=== PATIENT | female | born 1995 | race American Indian/Alaskan Native ===

== ENCOUNTER 2018-10-25 17:55 | Emergency (ER) | payer MEDICAID, OTHER ==
--- NOTE | 2018-10-25 18:20 | Emergency Department Report ---
Blank Doc - Documentation Documentation: 23 y o female presents to ed cc of left and middle sided pelvic pain x t gilbert intermittent every 5 mins LMP july 2018 no ob care yet LAbs ordered
[2018-10-25] MEDS ORDERED: NACL 0.9% 1000 ML 1,000 ML IV ONE (18:23)
[2018-10-25 18:40] LABS: Basophils % (Auto) 0.7 % (0.0-1.8); Eosinophils % (Auto) 0.7 % (0.0-4.3); Hematocrit 38.2 % (30.3-42.9); Hemoglobin 12.8 gm/dl (10.1-14.3); Lymphocytes # (Auto) 2.1 K/mm3 (1.2-5.4); Mean Corpuscular HGB Conc 34 % (30-34); Mean Corpuscular Volume 89 fl (79-97); Monocytes # (Auto) 0.5 K/mm3 (0.0-0.8); Monocytes % (Auto) 7.1 % (0.0-7.3); Platelet Count 283 K/mm3 (140-440); Red Blood Count 4.32 M/mm3 (3.65-5.03); Red Cell Distribution Width 14.1 % (13.2-15.2)
[2018-10-25] MEDS ORDERED: NACL 0.9% 500 ML 500 ML IV ONE (18:52)
[2018-10-25] MEDS ORDERED: ZOFRAN IV ONE (18:52)
[2018-10-25] MEDS ORDERED: MORPHINE IV ONE (18:52)
--- NOTE | 2018-10-25 18:53 | Emergency Department Report ---
ED Female HPI - General Chief complaint: Vaginal Bleeding Stated complaint: ABD PAIN Time Seen by Provider: 10/25/18 18:16 Source: patient, RN notes reviewed Mode of arrival: Ambulatory Limitations: No Limitations - History of Present Illness Initial comments: This is a 23-year-old female. The patient is not known to this provider previously. She reports that she is 1, para 0. Does not have a local primary care doctor. Does not have a local LAND ACQUISITION MANAGER physician. Recently moved here from [place], [place]. Patient presents to the emergency room with a complaint of nontraumatic suprapubic pain, and vaginal spotting. She used 2 pads today. The vaginal spotting started 3-4 days ago. She defecated normally today, reports no vomiti ng, reports no irritative or obstructive urinary symptoms. Denies headache, neck pain, chest pain, shortness of breath. Reports no recent heavy lifting or trauma. Reports no recent vigorous sexual intercourse. No history of abdominal surgeries. MD Complaint: vaginal bleeding, pelvic pain -: Gradual, days(s) Location: suprapubic Severity: mild, moderate Quality: cramping Consistency: intermittent Improves with: other (pain decreases with rest. It increases with palpation. Pain decreases with lying on her left hand side.) Are you Now?: Yes Associated Symptoms: vaginal bleeding, abdominal pain. denies: vaginal discharge, fever/chills - Related Data Sexually active: Yes Previous Rx's Medication Instructions Recorded Last Taken Type Acetaminophen [Non-Aspirin Extra 500 mg PO Q6HR PRN #30 tablet 10/25/18 Unknown Rx Strength] Ibuprofen [Motrin] 600 mg PO Q8H PRN #30 tablet 10/25/18 Unknown Rx Allergies Allergy/AdvReac Type Severity Reaction Status Date / Time Penicillins Allergy Unknown Verified 10/25/18 18:16 ED Review of Systems ROS: Stated complaint: ABD PAIN Other details as noted in HPI Constitutional: malaise. denies: fever Eyes: denies: eye discharge ENT: denies: epistaxis Respiratory: denies: cough Cardiovascular: denies: chest pain Gastrointestinal: abdominal pain Genitourinary: denies: dysuria Musculoskeletal: denies: back pain Skin: denies: lesions Neurological: weakness Psychiatric: anxiety ED Past Medical Hx - Past Medical History Previous Medical History?: No - Surgical History Past Surgical History?: No - Social History Smoking Status: Never Smoker Substance Use Type: None - Medications Home Medications: Home Medications Medication Instructions Recorded Confirmed Last Taken Type Acetaminophen [Non-Aspirin Extra 500 mg PO Q6HR PRN #30 tablet 10/25/18 Unknown Rx Strength] Ibuprofen [Motrin] 600 mg PO Q8H PRN #30 tablet 10/25/18 Unknown Rx ED Physical Exam - General Limitations: No Limitations General appearance: alert, anxious, in distress - Head Head exam: Present: atraumatic, normocephalic - Eye Eye exam: Present: EOMI. Absent: nystagmus - ENT ENT exam: Present: normal exam, normal orophraynx, mucous membranes moist, normal external ear exam - Neck Neck exam: Present: normal inspection, full ROM. Absent: tenderness, meningismus - Respiratory Respiratory exam: Present: normal lung sounds bilaterally. Absent: respiratory distress - Cardiovascular Cardiovascular Exam: Present: regular rate, normal rhythm, normal heart sounds. Absent: bradycardia, tachycardia, irregular rhythm, systolic murmur, diastolic murmur, rubs, gallop - GI/Abdominal GI/Abdominal exam: Present: soft, tenderness, other (there is left lower quadrant and suprapubic tenderness. There is no right lower quadrant tenderness. There is no problems extend. There is a negative Telles sign.). Absent: distended, guarding, rebound, rigid, pulsatile mass - External exam: Present: normal external exam Speculum exam: Present: vaginal bleeding. Absent: erythema, vaginal discharge Bi-manual exam: Present: uterine tenderness, other (chaperoned by nikolas Bui). Absent: adnexal tenderness, adnexal mass - Extremities Exam Extremities exam: Present: normal inspection, full ROM, other (2+ pulses noted in the bilateral upper, lower extremities. Compartments soft. No long bony tenderness. The pelvis is stable.). Absent: pedal edema, joint swelling, calf tenderness - Back Exam Back exam: Present: normal inspection, full ROM, CVA tenderness (L). Absent: tenderness, CVA tenderness (R), paraspinal tenderness, vertebral tenderness - Neurological Exam Neurological exam: Present: alert, other (Extraocular movements intact. Tongue midline. No facial droop. Facial sensation intact to light touch in the V1, V2, V3 distribution bilaterally. 5 and 5 strength in 4 extremities.. Sensation is intact to light touch in 4 extremities.). Absent: motor sensory deficit - Psychiatric Psychiatric exam: Present: anxious - Skin Skin exam: Present: warm, dry, intact, normal color. Absent: rash ED Course Vital Signs 10/25/18 10/25/18 10/25/18 18:16 18:43 19:24 Temperature 97.9 F 98.4 F Pulse Rate 110 H 82 Respiratory 22 18 18 Rate Blood Pressure 146/77 93/50 [Right] O2 Sat by Pulse 100 98 Oximetry - Reevaluation(s) Reevaluation #1: 10/25/18 19:31 Differential diagnosis, including but not limited to: Urinary tract infection, miscarriage, threatened miscarriage, ovarian cyst, ovarian torsion, ectopic Assessment and plan: 23-year-old female with vaginal bleeding and lower abdominal pain. Minimally tender. Afebrile, with otherwise reassuring vital signs, with resolved tachycardia. Screening laboratory studies, urinalysis, pelvic ultrasound pending. We will reassess after her initial data points. Of note, she reports not having had penicillin since the age of 7, and reports that her "allergy" is a rash without anaphylaxis. Reevaluation #2: 10/25/18 23:00 Patient reevaluated multiple times while in the department. She feels comfortable. She is noted to be smiling to her manager of engineering. Unfortunately, ultrasound demonstrates twin demise, with no evidence of subchorionic hemorrhage, no evidence of ovarian torsion, and closed internal uterine os The patient will be instructed to follow-up with an outpatient LAND ACQUISITION MANAGER doctor. Return precautions are reviewed. ED Medical Decision Making - Lab Data Result diagrams: 10/25/18 18:25 10/25/18 18:25 Vital Signs 10/25/18 10/25/18 10/25/18 18:16 18:43 19:24 Temperature 97.9 F 98.4 F Pulse Rate 110 H 82 Respiratory 22 18 18 Rate Blood Pressure 146/77 93/50 [Right] O2 Sat by Pulse 100 98 Oximetry Lab Results 10/25/18 10/25/18 10/25/18 Range/Units 18:25 18:25 18:25 WBC 6.4 (4.5-11.0) K/mm3 RBC 4.32 (3.65-5.03) M/mm3 Hgb 12.8 (10.1-14.3) gm/dl Hct 38.2 (30.3-42.9) % MCV 89 (79-97) fl MCH 30 (28-32) pg MCHC 34 (30-34) % RDW 14.1 (13.2-15.2) % Plt Count 283 (140-440) K/mm3 Lymph % (Auto) 33.0 (13.4-35.0) % [place] % (Auto) 7.1 (0.0-7.3) % Eos % (Auto) 0.7 (0.0-4.3) % Baso % (Auto) 0.7 (0.0-1.8) % Lymph # 2.1 (1.2-5.4) K/mm3 [place] # 0.5 (0.0-0.8) K/mm3 Eos # 0.0 (0.0-0.4) K/mm3 Baso # 0.0 (0.0-0.1) K/mm3 Seg Neutrophils % 58.5 (40.0-70.0) % Seg Neutrophils # 3.8 (1.8-7.7) K/mm3 HCG, Quant 3896 H (0-4) mIU/mL Blood Type O POSITIVE - Radiology Data Radiology results: report reviewed, image reviewed Print Report Referring Physician: JUDITH ERICKSON Patient Name: GIESLE VALERA Date of : 1995 Sex: Female Report Date: 2018-10-25 Report Status: Finalized Findings [facility] [address] [place] [address] Ultrasound Report Signed Patient: GISELE VALERA MR#: [id number] : 1995 Acct:[id number] Age/Sex: 23 / F ADM Date: 10/25/18 Loc: ED Attending Dr: Ordering Physician: JUDITH ERICKSON MD Date of Service: 10/25/18 Procedure(s): US pelvis duplex doppler comp Accession Number(s): [id number] cc: JUDITH ERICKSON MD PROCEDURE: US OB <= 14 WEEKS FETUS TECHNIQUE: Real-time sonography was performed of the pelvis transabdominally and endovaginally and images are submitted for interpretation. HISTORY: pain/bleed quantitative beta hCG is 3896 COMPARISONS: None FINDINGS: The cervix is closed. There is a large misshapen gestational sac in the uterus with a thin linear septation, probably an amnionic membrane. There is a pole that measures 0.95 cm for an estimated gestational age of 7 weeks 0 days. There is another that measures 0.58 cm in for an estimated gestational age of 6 weeks 3 days. There is no cardiac activity in either pole. There is no evidence of subchorionic hematoma. The right ovary appears normal measuring 2.9 x 1.2 x 3.2 cm. The left ovary appears normal measuring 2.7 x 1.8 x 1.8 cm. Color Doppler evaluation of the ovaries shows flow bilaterally. IMPRESSION: Twin gestation with demise of both twins. I gave verbal report by phone to Dr. Erickson at 10:54 pm Eastern daylight time. This document is electronically signed by Telma Whitmore MD., Oct 25 2018 11:00:44 PM ET Transcribed By: [facility] Dictated By: TELMA WHITMORE MD Electronically Authenticated By: TELMA WHITMORE MD Signed Date/Time: 10/25/18 1013 Critical care attestation.: If time is entered above; I have spent that time in minutes in the direct care of this critically ill patient, excluding procedure time. ED Disposition Clinical Impression: Miscarriage Disposition: DC-01 TO HOME OR SELFCARE Is pt being admited?: No Does the pt Need Aspirin: No Condition: Stable Instructions: Spontaneous Miscarriage (ED) Additional Instructions: Cultures were sent today, and results will be available in the next 3-5 days. Have a primary care doctor or grinder set up operator jig contact the medical records department to obtain culture results. Ultrasound demonstrated demise and miscarriage. Patient will likely continue to have cramping, bleeding and discomfort. Take the pain medications as needed/directed. Rest, avoid heavy lifting, and avoid strenuous physical activities. Please follow up with an LAND ACQUISITION MANAGER doctor as soon as possible to continue outpatient care. Return to the emergency room right away with new pain, worsening pain, migration of pain, projectile vomiting, change in mental status, confusion, inability to tolerate liquid feeds, new, worsening or different symptoms not present on the initial ER evaluation. Prescriptions: Ibuprofen [Motrin] 600 mg PO Q8H PRN #30 tablet PRN Reason: Pain Acetaminophen [Non-Aspirin Extra Strength] 500 mg PO Q6HR PRN #30 tablet PRN Reason: Pain , Severe (7-10) Referrals: [facility] [Provider Group] - 3-5 Days [facility], [facility] [Provider Group] - 3-5 Days [facility] [Provider Group] - 3-5 Days
[2018-10-25 19:38] LABS: Alanine Aminotransferase 11 units/L (7-56); Albumin 4.2 g/dL (3.9-5); BUN/Creatinine Ratio 5; Blood Urea Nitrogen 3 mg/dL (7-17); Calcium 9.8 mg/dL (8.4-10.2); Hemolysis Index 2
[2018-10-25 19:43] LABS: Bilirubin,Urine NEG (Negative); Blood,Urine MOD (Negative); Color,Urine Yellow (Yellow); Mucus,Urine FEW /HPF; Protein,Urine <15 mg/dL mg/dL (Negative); Urobilinogen,Urine < 2.0 mg/dL (<2.0)
--- NOTE | 2018-10-25 22:59 | Ultrasound Report ---
PROCEDURE: US OB <= 14 WEEKS FETUS TECHNIQUE: Real-time sonography was performed of the pelvis transabdominally and endovaginally and i mages are submitted for interpretation. HISTORY: pain/bleed quantitative beta hCG is 3896 COMPARISONS: None FINDINGS: The cervix is closed. There is a large misshapen gestational sac in the uterus with a thin linear sep tation, probably an amnionic membrane. There is a pole that measures 0.95 cm for an estimated g estational age of 7 weeks 0 days. There is a second pole that measures 0.58 cm in for an estima sixto gestational age of 6 weeks 3 days. There is no cardiac activity in either pole. There is no evidence of subchorionic hematoma. The right ovary appears normal measuring 2.9 x 1.2 x 3.2 cm. The left ovary appears normal measuring 2.7 x 1.8 x 1.8 cm. Color Doppler evaluation of the ovaries shows flow bilaterally. IMPRESSION: Twin gestation with demise of both twins. I gave verbal report by phone to Dr. Erickson at 10:54 PM Eastern daylight time. This document is electronically signed by Marah Whitmore MD., Oct 25 2018 11:50:58 PM ET
--- NOTE | 2018-10-25 23:02 | Ultrasound Report ---
PROCEDURE: US OB <= 14 WEEKS FETUS TECHNIQUE: Real-time sonography was performed of the pelvis transabdominally and endovaginally and i mages are submitted for interpretation. HISTORY: pain/bleed quantitative beta hCG is 3896 COMPARISONS: None FINDINGS: The cervix is closed. There is a large misshapen gestational sac in the uterus with a thin linear sep tation, probably an amnionic membrane. There is a pole that measures 0.95 cm for an estimated g estational age of 7 weeks 0 days. There is another that measures 0.58 cm in for an estimated gestatio nal age of 6 weeks 3 days. There is no cardiac activity in either pole. There is no evidence of subchorionic hematoma. The right ovary appears normal measuring 2.9 x 1.2 x 3.2 cm. The left ovary appears normal measuring 2.7 x 1.8 x 1.8 cm. Color Doppler evaluation of the ovaries shows flow bilaterally. IMPRESSION: Twin gestation with demise of both twins. I gave verbal report by phone to Dr. Erickson at 10:54 pm Eastern daylight time. This document is electronically signed by Marah Whitmore MD., Oct 25 2018 11:00:44 PM ET
[2018-10-25] MEDS ORDERED: SUBLIMAZE IV ONE (23:10)
[2018-10-26 06:19] VITALS: BP 121/72
--- NOTE | 2018-11-03 15:58 | Anesthesia Day of Surgery ---
Anesthesia Day of Surgery - Day of Surgery Patient Examined: Yes Patient H&P Reviewed: Yes Patient is NPO: Yes (@ 9am ) Beta Blockers: No Cardiac Clearance: No Pulmonary Clearance: No Blanco's Test: N/A
--- NOTE | 2018-11-03 15:59 | Anesthesia Consultation ---
Anesthesia Consult and Med Hx Date of service: 11/03/18 - Airway Anesthetic Teeth Evaluation: Good ROM Head & Neck: Adequate Mental/Hyoid Distance: Adequate Mallampati Class: Class II Intubation Access Assessment: Probably Good - Pulmonary Exam CTA: Yes - Pre-Operative Health Status ASA Pre-Surgery Classification: ASA1 Proposed Anesthetic Plan: General - Pulmonary Hx Smoking: No Hx Asthma: No Hx Respiratory Symptoms: No SOB: No COPD: No Hx Sleep Apnea: No - Cardiovascular System Hx Hypertension: No - Gastrointestinal Hx Ulcer: No Hx Gastroesophageal Reflux Disease: No - Hematic Hx Anemia: No - Additional Comments Anesthesia Medical History Comments: uneventful history
== END 2018-10-25 23:00 | disposition home or self-care (01) ==
LOC: ED 17:55
DX: O03.9 Complete or unspecified spontaneous abortion without complication (principal); Z88.0 Allergy status to penicillin; Z3A.01 Less than 8 weeks gestation of pregnancy
CPT/HCPCS: 36415; 76801; 76817; 80053; 81001; 84702; 85025; 86850; 86900; 86901; 87210; 87591; 93975; 96374; 96375; 99285; J2270; J2405; J3010; J7030

== ENCOUNTER 2018-11-03 10:16 | Day surgery (SDC) | payer MEDICAID, OTHER ==
--- NOTE | 2018-11-03 10:58 | Emergency Department Report ---
HPI - General Chief Complaint: Vaginal Bleeding Time Seen by Provider: 11/03/18 10:42 - HPI HPI: Room 24 The patient is a 23-year-old female presented with a chief complaint of vaginal bleeding. The patient was seen in this ED last week and diagnosed with demise. The patient states since the last visit she is continued to have vaginal bleeding going through approximately 6 pads per day. Patient states she is bleeding and passing blood clots. The patient states she had some lower abdominal pain 3 days ago but none currently. The patient states she has not followed up with an DONOR SERVICES TEAM LEADER since her last ED visit. Location: Genitourinary system Duration: 1 Week Quality: [See above] Severity: 6 pads per day Modifying factors: [see above] Context: [see above] Mode of transportation: [not driving] ED Past Medical Hx - Past Medical History Previous Medical History?: No - Surgical History Past Surgical History?: No - Family History Family history: no significant - Social History Smoking Status: Never Smoker Substance Use Type: None (denies illicit drug use) - Medications Home Medications: Home Medications Medication Instructions Recorded Confirmed Last Taken Type Acetaminophen [Non-Aspirin Extra 500 mg PO Q6HR PRN #30 tablet 10/25/18 Unknown Rx Strength] Ibuprofen [Motrin] 600 mg PO Q8H PRN #30 tablet 10/25/18 Unknown Rx ED Review of Systems ROS: Stated complaint: VAGINAL BLOOD CLOT/PAIN Other details as noted in HPI Constitutional: no symptoms reported Eyes: denies: eye pain ENT: denies: throat pain Respiratory: no symptoms reported Cardiovascular: denies: chest pain Endocrine: no symptoms reported Gastrointestinal: abdominal pain Genitourinary: abnormal menses Musculoskeletal: denies: back pain Neurological: denies: headache Physical Exam - Physical Exam Vital Signs: Vital Signs 11/03/18 10:26 Temperature 98.7 F Pulse Rate 95 H Respiratory 18 Rate Blood Pressure 118/72 O2 Sat by Pulse 98 Oximetry Physical Exam: GENERAL: The patient is well-developed well-nourished female lying on stretcher not appearing to be in acute distress. [] HEENT: Normocephalic. Atraumatic. Extraocular motions are intact. NECK: Trachea midline CHEST/LUNGS: Clear to auscultation. There is no respiratory distress noted. HEART/CARDIOVASCULAR: Regular. There is no tachycardia. There is no gallop rub or murmur. ABDOMEN: Abdomen is soft, nontender. Patient has normal bowel sounds. There is no abdominal distention. SKIN: There is no rash. There is no edema. There is no diaphoresis. NEURO: The patient is awake, alert, and oriented. The patient is cooperative. The patient has normal speech MUSCULOSKELETAL: There is no evidence of acute injury. PELVIC: Small to moderate amount of dark red blood in the vaginal vault ED Course Vital Signs 11/03/18 10:26 Temperature 98.7 F Pulse Rate 95 H Respiratory 18 Rate Blood Pressure 118/72 O2 Sat by Pulse 98 Oximetry - Consultations Consultation #1: 11/03/18 13:12 DONOR SERVICES TEAM LEADER paged 11/03/18 13:[address] Maya 11/03/18 14:44 Dr. Maya state the patient will be going to the OR for a D&C ED Medical Decision Making - Lab Data Result diagrams: 11/03/18 10:56 Laboratory Tests 11/03/18 11/03/18 11/03/18 10:56 10:56 13:15 WBC 6.4 RBC 3.95 Hgb 11.6 Hct 35.4 MCV 90 MCH 29 MCHC 33 RDW 14.6 Plt Count 245 Lymph % (Auto) 22.5 Lane % (Auto) 8.3 H Eos % (Auto) 0.3 Baso % (Auto) 0.2 Lymph # 1.4 Lane # 0.5 Eos # 0.0 Baso # 0.0 Seg Neutrophils % 68.7 Seg Neutrophils # 4.4 HCG, Quant 258.5 H Urine Color Yellow Urine Turbidity Slightly-cloudy Urine pH 7.0 Ur Specific [place] 1.013 Urine Protein <15 mg/dl Urine Glucose (UA) Neg Urine Ketones Neg Urine Blood Lg Urine Nitrite Neg Urine Bilirubin Neg Urine Urobilinogen < 2.0 Ur Leukocyte Esterase Mod Urine WBC (Auto) 43.0 H Urine RBC (Auto) 173.0 U Epithel Cells (Auto) 1.0 Urine Mucus Few - Radiology Data Radiology results: report reviewed (pelvic ultrasound), image reviewed (pelvic ultrasound) [facility] [address] [place] [address] Ultrasound Report Signed Patient: GISELE VALERA MR#: [id number] : 1995 Acct:[id number] Age/Sex: 23 / F ADM Date: 11/03/18 Loc: ED Attending Dr: Ordering Physician: KAMI SANDOVAL MD Date of Service: 11/03/18 Procedure(s): US OB transvaginal Accession Number(s): [id number] cc: KAMI SANDOVAL MD ULTRASOUND OB LESS THAN 14 WEEKS FETUS ULTRASOUND OB TRANSVAGINAL History: Vaginal bleeding, demise. Findings: Transabdominal and transvaginal imaging was performed. Compared to 10/25/18. The uterus is retroflexed measuring 9 x 5 x 4 cm. The endometrial stripe is thickened and complex measuring up to 1.8 cm. No normal intrauterine or heart tones are demonstrated. The ovaries are unremarkable. No pelvic fluid collection. Impression: Findings consistent with demise and retained products of conception. Transcribed By: TTR Dictated By: PÉREZ FERNANDO JR, MD Electronically Authenticated By: PÉREZ FERNANDO JR, MD Signed Date/Time: 11/03/18 1250 DD/ 1248 TD/TT: 11/03/18 1250 - Differential Diagnosis demise Critical care attestation.: If time is entered above; I have spent that time in minutes in the direct care of this critically ill patient, excluding procedure time. ED Disposition Clinical Impression: demise, Retained products of conception Disposition: OP ADMIT IP TO THIS HOSP Is pt being admited?: Yes Does the pt Need Aspirin: No Condition: Stable Referrals: AMARA CANNON MD [Primary Care Provider] - 3-5 Days Time of Disposition: 14:43
[2018-11-03 11:39] LABS: Basophils % (Auto) 0.2 % (0.0-1.8); Eosinophils % (Auto) 0.3 % (0.0-4.3); Hematocrit 35.4 % (30.3-42.9); Hemoglobin 11.6 gm/dl (10.1-14.3); Lymphocytes # (Auto) 1.4 K/mm3 (1.2-5.4); Lymphocytes % (Auto) 22.5 % (13.4-35.0); Mean Corpuscular HGB Conc 33 % (30-34); Mean Corpuscular Volume 90 fl (79-97); Monocytes # (Auto) 0.5 K/mm3 (0.0-0.8); Monocytes % (Auto) 8.3 % (0.0-7.3); Platelet Count 245 K/mm3 (140-440); Red Blood Count 3.95 M/mm3 (3.65-5.03); Red Cell Distribution Width 14.6 % (13.2-15.2)
--- NOTE | 2018-11-03 12:54 | Ultrasound Report ---
ULTRASOUND OB LESS THAN 14 WEEKS FETUS ULTRASOUND OB TRANSVAGINAL History: Vaginal bleeding, demise. Findings: Transabdominal and transvaginal imaging was performed. Compared to 10/25/18. The uterus is retroflexed measuring 9 x 5 x 4 cm. The endometrial stripe is thickened and complex measuring up to 1.8 cm. No normal intrauterine or heart tones are demonstrated. The ovaries are unremarkable. No pelvic fluid collection. Impression: Findings consistent with demise and retained products of conception.
[2018-11-03 13:32] LABS: Bilirubin,Urine NEG (Negative); Blood,Urine LG (Negative); Color,Urine Yellow (Yellow); Mucus,Urine FEW /HPF; Protein,Urine <15 mg/dL mg/dL (Negative); Urobilinogen,Urine < 2.0 mg/dL (<2.0)
--- NOTE | 2018-11-03 15:14 | History and Physical Report ---
History of Present Illness Date of examination: 11/03/18 Date of admission: 11/03/18 Chief complaint: at 7 weeks with vaginal bleeding. History of present illness: Patient is a 23 year old , LMP 07/27/18 who presented to the ER complaining of having vaginal bleeding since 10/25/18. She said that she went to the ER on 10/25/18 and that when she was told that she as with twins at 7 weeks and sonogram showed no heart beat. She was discharged home and asked to follow up with her route sales specialist. She said that she did not and she continued to bleed with clots. She denies any dizziness, palpitation. In the ER, vitals are stable. Sonogram in ER showed retained products of conception in utero. Past History Social history: no significant social history Medications and Allergies Allergies Allergy/AdvReac Type Severity Reaction Status Date / Time Penicillins Allergy Unknown Verified 11/03/18 10:17 Home Medications Medication Instructions Recorded Confirmed Last Taken Type Acetaminophen [Non-Aspirin Extra 500 mg PO Q6HR PRN #30 tablet 10/25/18 Unknown Rx Strength] Ibuprofen [Motrin] 600 mg PO Q8H PRN #30 tablet 10/25/18 Unknown Rx - Vital Signs Vital signs: Vital Signs Temp Pulse Resp BP Pulse Ox 98.7 F 95 H 18 118/72 98 11/03/18 10:26 11/03/18 10:26 11/03/18 10:11/03/18 10:11/03/18 10:26 Temp Pulse Resp BP Pulse Ox 98.7 F 76 18 104/70 100 11/03/18 10:26 11/03/18 11:30 11/03/18 13:17 11/03/18 11:30 11/03/18 11:15 - Physical Exam Cardiovascular: Normal S1, Normal S2 Lungs: Positive: Clear to auscultation Vulva: both: normal Cervix: Positive: other (opened with POc at the os. Active bleeding.) Uterus: Positive: other (12 week size, anterveretd, mobile.) Adnexa: both: normal Results Result Diagrams: 11/03/18 10:56 Abnormal lab results 11/03/18 11/03/18 11/03/18 Range/Units 10:56 10:56 13:15 [place] % (Auto) 8.3 H (0.0-7.3) % HCG, Quant 258.5 H (0-4) mIU/mL Urine WBC (Auto) 43.0 H (0.0-6.0) /HPF All other labs normal. Assessment and Plan - Patient Problems (1) 7 weeks gestation of Current Visit: Yes Status: Acute (2) Incomplete Current Visit: Yes Status: Acute Plan to address problem: Admit to station cook service. T&S ordered. Patient was counselled for suction D&C. Risks and benefits were discussed with her such as [id number], infection, uterine perforation. She expressed understanding, her questions were answered, she gave her informed consent. Anestehsia notified. Keep NPO.
[2018-11-03] MEDS ORDERED: DIPRIVAN 10 MG/ML IV ONE (15:57)
[2018-11-03] MEDS ORDERED: XYLOCAINE MPF 2% ONE (15:57)
[2018-11-03] MEDS ORDERED: ZEMURON IV ONE (15:58)
[2018-11-03] MEDS ORDERED: QUELICIN ONE (15:58)
[2018-11-03] MEDS ORDERED: SUBLIMAZE ONE ×2 (15:58→16:57)
[2018-11-03] MEDS ORDERED: VERSED ONE (16:35)
[2018-11-03] MEDS ORDERED: CLEOCIN 900 MG/50 mL 900 MG/50 ML BAG IV ONE (16:57)
[2018-11-03] MEDS ORDERED: METHERGINE IM ONE (16:58)
[2018-11-03] MEDS ORDERED: BRIDION IV ONE ×2 (17:00→17:10)
[2018-11-03] MEDS ORDERED: NACL 0.9% IR ONE (17:05)
--- NOTE | 2018-11-03 17:14 | Operative Report ---
Operative Report Operative Report: Preoperative diagnosis: Incomplete . Postoperative diagnosis: same as preoperative diagnosis. Procedure: Suction D&C Surgeon: Dr. [facility] Specialist: none Anesthesia: General. EBL: 100 cc IVF: RL 1 liter Complications: none Procedure details: The risks, benefits, and alternatives of the procedure were discussed in detail with the patient which included but not limited to infection, hemorrhage requiring a, and uterine perforation. The patient expressed understanding, her questions answered, and she gave informed consent. The patient was taken to the operating room with an IVF infusing Ringer's lactate. In the operating room, she was placed in the dorsal supine position and given general anesthesia. Then, she was placed on the stirrups in a dorsal lithotomy position. The perineum vagina and cervix were washed and she was prepared and draped in the usual sterile fashion. Examination under anesthesia revealed normal external genitalia and vagina. The cervix was opened with POC at the os and moderate bleeding. The uterus was enlarged to 12-wk size, anteverted, mobile. The adnexae were nonpalpable. A weighted speculum was placed on the posterior vaginal wall. The anterior lip of the cervix was grasped with a single-tooth tenaculum. The cervical os was dilated, a 10-mm suction curette was connected to the suction device and introduced into the uterine cavity. It was rotated and moderate amount of tissues was suctioned. A gentle curettage was performed until a gritty texture was noticed. The suction device was re- introduced into the uterine cavity and was rotated to remove the remaining products of conception. The instruments were then removed from the uterine cavi ty. The count of laps, needles, sponges, and instrument were correct 2. The patient tolerated the procedure well. She was awakened from the anesthesia and taken to the recovery room in a stable condition.
[2018-11-03] MEDS ORDERED: NACL 0.9% 1000 ML 1,000 ML ONE (17:52)
[2018-11-03 18:04] VITALS: BP 106/76
== END 2018-11-03 19:30 | disposition home or self-care (01) ==
LOC: OR 10:16 → ED 10:16 → EDSTATUS 16:43 → OR 19:30
PROVIDERS: ATTEND Emergency Medicine Emergency Medical Services
DX: O03.4 Incomplete spontaneous abortion without complication (principal); Z88.0 Allergy status to penicillin; Z79.899 Other long term (current) drug therapy
CPT/HCPCS: 36415; 59812; 76801; 76817; 81001; 84702; 85025; 86900; 86901; 87086; 88305; 99285; J0330; J2210; J2250; J2590; J2704; J3010; J7030

== ENCOUNTER 2018-11-17 11:38 | Emergency (ER) | payer MEDICAID, OTHER ==
[2018-11-17 11:57] VITALS: BP 126/78
--- NOTE | 2018-11-17 11:59 | Emergency Department Report ---
Chief Complaint: Recheck/Abnormal Lab/Rx Stated Complaint: CHECK UP - HPI History of Present Illness: This is a 23-year-old female that presents to the ED for follow-up D/C procedure. Patient denies any symptoms or pains. Patient denies any abdominal pain, pelvic pain, vaginal bleeding, chest pain, shortness of breathe, fever, chills, headache, nausea or vomiting. Patient stated that when she left the OR she was told to follow-up but was not given surgeons information. D/C procedure was done on 11/03/[address] Riley. I will give patient the information to follow-up with the surgeon. Patient is stable with no signs of distress noted. - Exam Physical Exam: No abdominal pain. No vaginal bleeding. No complaints or symptoms. MSE screening note: Focused history and physical exam performed. Due to findings the following was ordered: ED Disposition for MSE Clinical Impression: Referred to doctor Disposition: DC-01 TO HOME OR SELFCARE Is pt being admited?: No Does the pt Need Aspirin: No Condition: Stable Additional Instructions: Follow-up with a Dr. Riley in 3-5 days or if symptoms worsen and continue return to the emergency department as soon as possible. Referrals: YADI RILEY MD [Staff Physician] - 3-5 Days
== END 2018-11-17 12:09 | disposition home or self-care (01) ==
LOC: ED 11:38
DX: Z71.89 Other specified counseling (principal); Z88.0 Allergy status to penicillin
CPT/HCPCS: 99281